=== PATIENT | female | born 1975 | race African-American/Black ===

== ENCOUNTER 2017-04-30 10:41 | Emergency (ER) | payer SELFPAY ==
[~2017-04-30] VITALS: Ht 157.5 cm; Wt 57.0 kg
[2017-04-30 10:46] VITALS: BP 124/59; PULSE 91; RESP 15; TEMP 99; O2SAT 100
[2017-04-30] MEDS ORDERED: SODIUM CHLOR 0.9% 1000 ML INJ 1,000 ML IV ONE (11:28)
[2017-04-30] MEDS ORDERED: KETOROLAC TROMETHAMINE 30 MG/ML (IVP) VIAL IVP ONE (11:30)
[2017-04-30] MEDS ORDERED: SODIUM CHLORIDE 0.9% FLUSH 10 ML FLUSH IVF PRN (11:30)
[2017-04-30] MEDS ORDERED: ONDANSETRON HCL 4 MG/2 ML VIAL IVP ONE (11:30)
[2017-04-30] MEDS ORDERED: IBUP-232 PO (11:56)
[2017-04-30 11:57] LABS: AUTOMATED NEUTROPHIL # 3.1 TH/MM3 (1.8-7.7); BASOPHIL % 0.5 % (0.0-2.0); EOSINOPHIL # 0.1 TH/MM3 (0-0.4); EOSINOPHIL % 1.4 % (0.0-4.0); HEMO FLAGS DIFF FINAL; LYMPH % 29.8 % (9.0-44.0); LYMPHOCYTE # 1.7 TH/MM3 (1.0-4.8); MEAN CELL VOLUME 76.5 FL (80.0-100.0); MEAN CORPUSCULAR HGB CONC 32.7 % (32.0-36.0); MONO % 12.6 % (0.0-8.0); NEUT % 55.7 % (16.0-70.0); PLATELET COUNT 299 TH/MM3 (150-450); RED BLOOD COUNT 3.26 MIL/MM3 (4.00-5.30); RED CELL DISTRIBUTION WIDTH 19.3 % (11.6-17.2); WHITE BLOOD COUNT 5.6 TH/MM3 (4.0-11.0)
[2017-04-30 12:01] LABS: BLOOD, URINE TRACE (NEG); GLUCOSE,URINE NEG (NEG); KETONE, URINE NEG (NEG); NITRITE,URINE NEG (NEG); PH, URINE 5.5 (5.0-8.5); URINE COLOR LIGHT-YELLOW (YELLW/STRAW)
[2017-04-30 12:09] LABS: COMMENT (UR) CULT NOT INDICATED; CULTURE IF INDICATED CULT NOT INDICATED
--- NOTE | 2017-04-30 12:09 | PD ---
HPI Chief Complaint: Abdominal Pain Time Seen by Provider: 11:14 Travel History International Travel<30 days: No Contact w/Intl Traveler<30days: No Traveled to known affect area: No History of Present Illness HPI Patient is a 41-year-old female presenting to emergency department for evaluation of left lower back pain, left pelvic pain. Patient states that she' s had a history of kidney stones and urinary tract infections and her pain feels the same way. She took ibuprofen which normally helps her muscle aches, this is not relieving her pain at this time. She denies any nausea, vomiting, fever, chills, vaginal discharge. Her last menstrual period was last week. Patient reports the pain as a 6 out of 10. PFSH Past Medical History Kidney Stones: Yes Influenza Vaccination: No ?: Not LMP: 04/19/2017 Social History Alcohol Use: Yes (on occasion) Tobacco Use: Yes (3 black and milds daily) Substance Use: No Allergies-Medications (Allergen,Severity, Reaction): Coded Allergies: No Known Allergies (Unverified , 04/30/17) Reported Meds & Prescriptions Reported Meds & Active Scripts Active Reported Ibuprofen 600 Mg Tab 600 Mg PO Q6H PRN Review of Systems Except as stated in HPI: all other systems reviewed are Neg Genitourinary: Positive: Frequency, Pelvic Pain, Flank Pain Physical Exam Narrative GENERAL: Well-developed, well-nourished, alert female. Resting comfortably in no acute distress. SKIN: Warm and dry. HEAD: Atraumatic. Normocephalic. EYES: Pupils equal and round. No scleral icterus. No injection or drainage. ENT: No nasal bleeding or discharge. Mucous membranes pink and moist. NECK: Trachea midline. No JVD. CARDIOVASCULAR: Regular rate and rhythm. RESPIRATORY: No accessory muscle use. Clear to auscultation. Breath sounds equal bilaterally. GASTROINTESTINAL: Abdomen soft, non-tender, nondistended. Hepatic and splenic margins not palpable. MUSCULOSKELETAL: Extremities without clubbing, cyanosis, or edema. No obvious deformities. + CVAT on left NEUROLOGICAL: Awake and alert. No obvious cranial nerve deficits. Motor grossly within normal limits. Five out of 5 muscle strength in the arms and legs. Normal speech. PSYCHIATRIC: Appropriate mood and affect; insight and judgment normal. Data Data Last Documented VS Vital Signs Date Time Temp Pulse Resp B/P (MAP) Pulse Ox O2 Delivery O2 Flow Rate FiO2 04/30/17 10:46 99.0 91 15 124/59 (80) 100 Orders Orders Urinalysis - C+S If Indicated (04/30/17 11:13) Complete Blood Count With Diff (04/30/17 11:28) Basic Metabolic Panel (Bmp) (04/30/17 11:28) Ed Urine Pregnancytest Poc (04/30/17 11:28) Ct Abd/Pel W/O Iv Contrast (04/30/17 11:28) Ecg Monitoring (04/30/17 11:28) Iv Access Insert/Monitor (04/30/17 11:28) Ketorolac Inj (Toradol Inj) (04/30/17 11:30) Ondansetron Inj (Zofran Inj) (04/30/17 11:30) Sodium Chloride 0.9% Flush (Ns Flush) (04/30/17 11:30) Sodium Chlor 0.9% 1000 Ml Inj (Ns 1000 M (04/30/17 11:28) Labs Laboratory Tests Test 04/30/17 11:23 04/30/17 11:40 Urine Color LIGHT-YELLOW Urine Turbidity CLEAR Urine pH 5.5 Urine Specific [place] 1.006 Urine Protein NEG mg/dL Urine Glucose (UA) NEG mg/dL Urine Ketones NEG mg/dL Urine Occult Blood TRACE Urine Nitrite NEG Urine Bilirubin NEG Urine Urobilinogen LESS THAN 2.0 MG/DL Urine Leukocyte Esterase NEG Urine RBC 1 /hpf Urine WBC 1 /hpf Microscopic Urinalysis Comment CULT NOT INDICATED White Blood Count 5.6 TH/MM3 Red Blood Count 3.26 MIL/MM3 Hemoglobin 8.2 GM/DL Hematocrit 25.0 % Mean Corpuscular Volume 76.5 FL Mean Corpuscular Hemoglobin 25.0 PG Mean Corpuscular Hemoglobin Concent 32.7 % Red Cell Distribution Width 19.3 % Platelet Count 299 TH/MM3 Mean Platelet Volume 8.0 FL Neutrophils (%) (Auto) 55.7 % Lymphocytes (%) (Auto) 29.8 % Monocytes (%) (Auto) 12.6 % Eosinophils (%) (Auto) 1.4 % Basophils (%) (Auto) 0.5 % Neutrophils # (Auto) 3.1 TH/MM3 Lymphocytes # (Auto) 1.7 TH/MM3 Monocytes # (Auto) 0.7 TH/MM3 Eosinophils # (Auto) 0.1 TH/MM3 Basophils # (Auto) 0.0 TH/MM3 CBC Comment DIFF FINAL Differential Comment Blood Urea Nitrogen 8 MG/DL Creatinine 0.59 MG/DL Random Glucose 69 MG/DL Calcium Level 8.3 MG/DL Sodium Level 140 MEQ/L Potassium Level 3.8 MEQ/L Chloride Level 110 MEQ/L Carbon Dioxide Level 25.0 MEQ/L Anion Gap 5 MEQ/L Estimat Glomerular Filtration Rate 136 ML/MIN MDM Medical Decision Making Medical Screen Exam Complete: Yes Emergency Medical Condition: Yes Interpretation(s) Last Impressions Abdomen/Pelvis CT 04/30/17 1128 Signed Impressions: Service Date/Time: April 12:56 - CONCLUSION: 1. 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 2. Uterus mildly enlarged although no discrete mass identified on CT. David Meneses MD Laboratory Tests Test 04/30/17 11:23 04/30/17 11:40 Urine Color LIGHT-YELLOW Urine Turbidity CLEAR Urine pH 5.5 Urine Specific [place] 1.006 Urine Protein NEG mg/dL Urine Glucose (UA) NEG mg/dL Urine Ketones NEG mg/dL Urine Occult Blood TRACE Urine Nitrite NEG Urine Bilirubin NEG Urine Urobilinogen LESS THAN 2.0 MG/DL Urine Leukocyte Esterase NEG Urine RBC 1 /hpf Urine WBC 1 /hpf Microscopic Urinalysis Comment CULT NOT INDICATED White Blood Count 5.6 TH/MM3 Red Blood Count 3.26 MIL/MM3 Hemoglobin 8.2 GM/DL Hematocrit 25.0 % Mean Corpuscular Volume 76.5 FL Mean Corpuscular Hemoglobin 25.0 PG Mean Corpuscular Hemoglobin Concent 32.7 % Red Cell Distribution Width 19.3 % Platelet Count 299 TH/MM3 Mean Platelet Volume 8.0 FL Neutrophils (%) (Auto) 55.7 % Lymphocytes (%) (Auto) 29.8 % Monocytes (%) (Auto) 12.6 % Eosinophils (%) (Auto) 1.4 % Basophils (%) (Auto) 0.5 % Neutrophils # (Auto) 3.1 TH/MM3 Lymphocytes # (Auto) 1.7 TH/MM3 Monocytes # (Auto) 0.7 TH/MM3 Eosinophils # (Auto) 0.1 TH/MM3 Basophils # (Auto) 0.0 TH/MM3 CBC Comment DIFF FINAL Differential Comment Blood Urea Nitrogen 8 MG/DL Creatinine 0.59 MG/DL Random Glucose 69 MG/DL Calcium Level 8.3 MG/DL Sodium Level 140 MEQ/L Potassium Level 3.8 MEQ/L Chloride Level 110 MEQ/L Carbon Dioxide Level 25.0 MEQ/L Anion Gap 5 MEQ/L Estimat Glomerular Filtration Rate 136 ML/MIN Vital Signs Date Time Temp Pulse Resp B/P (MAP) Pulse Ox O2 Delivery O2 Flow Rate FiO2 04/30/17 10:46 99.0 91 15 124/59 (80) 100 Differential Diagnosis Muscle strain versus muscle spasm versus UTI versus kidney stone versus other Narrative Course Patient is a 41-year-old female presenting for evaluation of left lower back and flank pain. She reports a history of kidney stones. Labs and imaging ordered and pending, medication ordered for pain. Patient's vital signs are stable. The access established, patient placed on telemetry monitoring and continuous pulse oximetry. Chemistry and urinalysis reviewed and are unremarkable. CBC with an anemia with a hemoglobin of 8.2/25.0 CT scan abdomen and pelvis read by the radiologist shows numerous nonobstructing bilateral renal calcifications probably associated with some medullary nephrocalcinosis. Uterus is mildly enlarged although no discrete masses identified on the CAT scan. Patient was discharged home, she is encouraged to maintain adequate fluid intake , follow up with a primary doctor. She is encouraged to return to emergency department for any new or worsening symptoms. Patient verbalized understanding of these instructions. Plan of care discussed with my attending physician. Back pain seems more musculoskeletal in nature than related to the nonobstructing kidney stones. Patient is stable for discharge. Diagnosis Primary Impression: Renal calculus, bilateral Referrals: [facility] Primary Care Physician Patient Instructions: General Instructions, Kidney Stones (DC) Additional Instructions: Follow-up with the primary doctor or at the [facility] Maintain adequate fluid intake Take medications as needed and as directed Return to emergency department for any new or worsening symptoms Med/Other Pt SpecificInfo: Prescription(s) given Scripts Cyclobenzaprine (Flexeril) 10 Mg Tab 10 MG PO TID Y for MUSCLE SPASM, #30 TAB 0 Refills Prov: Pricila Cardenas 04/30/17 Ibuprofen (Ibuprofen) 800 Mg Tab 800 MG PO Q6HR Y for PAIN, #40 TAB 0 Refills Prov: Pricila Cardenas 04/30/17 Disposition: 01 DISCHARGE HOME Condition: Stable Pricila Cardenas Apr 30, 2017 12:08
[2017-04-30 12:35] LABS: POTASSIUM 3.8 MEQ/L (3.5-5.1)
--- NOTE | 2017-04-30 13:41 | RADRPT ---
EXAM DATE/TIME: 04/30/2017 12:56 [place] COMPARISON: No previous studies available for comparison. INDICATIONS : Left flank pain for a few days. ORAL CONTRAST: No oral contrast ingested. RADIATION DOSE: 3.94 CTDIvol (mGy) MEDICAL HISTORY : None SURGICAL HISTORY : None. ENCOUNTER: Initial ACUITY: 3 days PAIN SCALE: 4/10 LOCATION: Left flank TECHNIQUE: Volumetric scanning of the abdomen and pelvis was performed. Using automated exposure control and ad justment of the mA and/or kV according to patient size, radiation dose was kept as low as reasonably achievable to obtain optimal diagnostic quality images. DICOM format image data is available electro nically for review and comparison. FINDINGS: Lung bases clear except minimal dependent atelectasis. No acute findings in the liver, spleen, adrena ls or pancreas. Numerous nonobstructing bilateral renal calcifications which may be associated with m edullary nephrocalcinosis bilaterally. These range in size from about 1-4 mm. No hydronephrosis or evidence for obstructive uropathy. Uterus appears enlarged. Bladder unremarkable . CONCLUSION: 1. Numerous nonobstructing bilateral renal calcifications probably associated with some medullary nep hrocalcinosis. 2. Uterus mildly enlarged although no discrete mass identified on CT. David Meneses MD on April 30, 2017 at 13:34 Board Certified Radiologist. This report was verified electronically.
[2017-04-30] MEDS ORDERED: CYCL1TAB29 PO (14:17)
[2017-04-30] MEDS ORDERED: IBUP800T23 PO (14:17)
== END 2017-04-30 14:51 | disposition home or self-care (01) ==
LOC: NEPD 10:41
DX: N20.0 Calculus of kidney (principal)
CPT/HCPCS: 74176; 80048; 81001; 84703; 85025; 96374; 96375; 99285; J1885; J2405; J7030